=== PATIENT | male | born 1990 | race Caucasian/White ===

== ENCOUNTER → 2016-06-27 | Outpatient (CLI) | payer OTHER ==
--- NOTE | 2016-06-27 20:40 | ECHO ---
DATE OF PROCEDURE: 06/27/2016 REFERRING PHYSICIAN: CLAUDIA Hood PATIENT LOCATION: Outpatient REASON FOR ECHOCARDIOGRAM: Abnormal EKG. 2D MEASUREMENTS: IVS: 1.1 cm LV: 5.2 cm LVPW: 1.1 cm LA: 4.1 cm Aorta: 3.0 cm IVC: 1.8 cm DOPPLER MEASUREMENTS: Peak velocity across the aortic valve: 1.6 m/s Peak velocity across the LVOT: 0.92 m/s Mitral E: 0.93 Maximum tricuspid valve velocity: 2.2 m/s 2D COMMENTS: 1. Normal left ventricular size, wall thickness and normal global left ventricular systolic function. The estimated global left ventricular systolic ejection fraction is 60%. 2. Mildly enlarged left atrium. The right atrium also appeared to be mildly enlarged. Normal right ventricle. 3. The atrial septum appeared to be normal without evidence of defect or shunt. 4. Normal aortic root. 5. No pericardial effusion seen. 6. The aortic valve, mitral valve and tricuspid valve appeared to be normal. The pulmonary valve and proximal pulmonary artery branches were not well visualized. 7. The inferior vena cava was normal in size, central venous pressure is most likely normal. DOPPLER: It detects trace mitral regurgitation and trace tricuspid regurgitation. The calculated pulmonary artery systolic pressure was normal. IMPRESSION: 1. Normal global left ventricular systolic and diastolic function. 2. Trace mitral regurgitation. 3. Trace tricuspid regurgitation with a normal calculated pulmonary artery systolic pressure. 4. Mild biatrial enlargement noted without any significant valvular heart disease. The patient might benefit from sleep study. 5. The study was technically limited due to poor acoustic window secondary to lung interference. MARILYNN
== END ==
LOC: M CARPUL 09:42
PROVIDERS: ATTEND Physician Assistant
DX: I34.0 Nonrheumatic mitral (valve) insufficiency (principal); I36.1 Nonrheumatic tricuspid (valve) insufficiency

== ENCOUNTER 2016-08-04 23:59 | Emergency (ER) | payer OTHER ==
[~2016-08-04] VITALS: Ht 198.1 cm; Wt 112.0 kg
[2016-08-05] MEDS ORDERED: SILVER NITRATE APPLICATOR As Ordered ONE (02:19)
[2016-08-05] MEDS ORDERED: SILVER NITRATE APPLICATOR TOP ONE (02:30)
[2016-08-05 02:53] VITALS: BP 109/55
== END 2016-08-05 02:54 | disposition home or self-care (01) ==
LOC: M ED 08-05 01:50
DX: S61.011A Laceration without foreign body of right thumb without damage to nail, initial encounter (principal); W45.8XXA Other foreign body or object entering through skin, initial encounter; Y93.G1 Activity, food preparation and clean up; Y92.89 Other specified places as the place of occurrence of the external cause; Y99.8 Other external cause status

== ENCOUNTER 2019-01-09 21:51 | Emergency (ER) | payer OTHER ==
[~2019-01-09] VITALS: Ht 198.1 cm; Wt 118.2 kg
[2019-01-09 21:51] VITALS: BP 148/73
[2019-01-09] MEDS ORDERED: DERMABOND TOPICAL SKIN ADHESIVE TOP ONE (23:15)
== END 2019-01-09 23:38 | disposition home or self-care (01) ==
LOC: M ED 21:51
DX: S61.012A Laceration without foreign body of left thumb without damage to nail, initial encounter (principal); W27.4XXA Contact with kitchen utensil, initial encounter; Y92.000 Kitchen of unspecified non-institutional (private) residence as the place of occurrence of the external cause; Y93.G1 Activity, food preparation and clean up; F10.929 Alcohol use, unspecified with intoxication, unspecified